=== PATIENT | female | born 1960 | race Caucasian/White ===

== ENCOUNTER 2016-12-09 15:59 | Emergency (ER) | payer MEDICARE ==
[2016-12-09 18:46] LABS: BASOPHILS 0.1 % (0-2); EOSINOPHILS 0.3 % (0-7); HEMATOCRIT 46.9 % (36.0-48.0); HEMOGLOBIN 15.3 g/dL (12-16); IMMATURE GRANULOCYTES 0.3 % (0-5); LYMPHOCYTES 10.1 % (15-50); MCH 31.3 pg (26.0-34.0); MCHC 32.6 g/dL (31.0-37.0); MCV 95.9 fL (80.0-100.0); MEAN PLATELET VOLUME 12.2 fL (7.4-10.4); MONOCYTES 3.1 % (2-11); NEUTROPHILS 86.1 % (40-80); PLATELET COUNT 198 10x3/uL (130-400); RBC 4.89 10x6/uL (4.00-5.40); RDW 13.7 % (11.5-14.5)
[2016-12-09 19:24] LABS: ALBUMIN 3.5 g/dL (3.4-5.0); ALKALINE PHOSPHATASE 88 U/L (46-116); ALT (SGPT) 27 U/L (10-68); BILIRUBIN - TOTAL 0.53 mg/dL (0.2-1.3); CALC OSMOLALITY 288 mosm/kg (275-300); CALCIUM 8.9 mg/dL (8.5-10.1); CARBON DIOXIDE 29.1 mmol/L (21.0-32.0); CHLORIDE - SERUM 109 mmol/L (98-107); CREATININE - SERUM 0.8 mg/dL (0.6-1.3); GLUCOSE 131 mg/dL (74-106); POTASSIUM - SERUM 5.3 mmol/L (3.5-5.1); PROTEIN - SERUM 6.5 g/dL (6.4-8.2); SODIUM 144 mmol/L (136-145); UREA NITROGEN 12 mg/dL (7-18); eGFR NON AFRICAN AMERICAN 78 mL/min (90-120)
[2016-12-09 19:31] LABS: PRO BNP 171 pg/mL (0-125)
[2017-02-11 10:50] VITALS: BMI 32.9
== END 2016-12-09 20:17 | disposition home or self-care (01) ==
LOC: D.ER 15:59
PROVIDERS: Physician Assistant Medical
DX: J44.1 Chronic obstructive pulmonary disease with (acute) exacerbation (principal); F17.200 Nicotine dependence, unspecified, uncomplicated

== ENCOUNTER 2017-02-10 19:21 | Inpatient (IN) | payer MEDICARE ==
[~2017-02-10] VITALS: Ht 157.5 cm; Wt 83.7 kg
--- NOTE | ~2017-02-10 | CN ---
PATIENT NAME:HEATHER WHEELER MEDICAL RECORD: [id number] : 60 LOCATION:D. D.2105 ADMIT DATE: 02/10/17 ACCOUNT: [id number] CONSULTING PHYSICIAN: ATTILA BURROUGHS MD REFERRING PHYSICIAN: PHILLIP CARABALLO MD DATE OF CONSULTATION: 02/11/2017 CONSULT REQUESTING PHYSICIAN: Phillip Caraballo MD REASON FOR CONSULTATION: Acute exacerbation of chronic obstructive pulmonary disease. HISTORY OF PRESENT ILLNESS: Ms. Wheeler is a 56-year-old female who has a history of COPD, current everyday smoker. The patient was sick for the last 4-5 days, she is coughing, she is wheezing, she has shortness of breath, her sinuses are congested. She is also feeling feverish and body aches and pain. REVIEW OF SYSTEMS: Mainly in the history of present illness. PAST MEDICAL HISTORY: 1. COPD. 2. Coronary artery disease. PAST SURGICAL HISTORY: Nonsignificant. ALLERGIES: SHE IS ALLERGIC TO MORPHINE. PRESENT MEDICATIONS: [employer] was reviewed. PERSONAL AND SOCIAL HISTORY: The patient is still a current everyday smoker, almost [id number] pack per day. She is a nondrinker. FAMILY HISTORY: Significant for cardiovascular disease. PHYSICAL EXAMINATION: GENERAL: Now, the patient is lying comfortably in bed. She is not in acute distress. VITAL SIGNS: The blood pressure is 146/90, pulse is 121, respiration is 24, temperature 97.8, SPO2 is 91% on 2 liters nasal cannula. HEENT: Conjunctivae pink, sclerae nonicteric. NECK: Neck is supple, no JVD. CHEST: The chest excursion is minimal on both sides. There is prolonged expiration with wheezing. HEART: Rhythm regular, normal sound, no murmur. ABDOMEN: Abdomen is soft. Bowel sounds present. No hepatosplenomegaly. RECTAL: Deferred. EXTREMITIES: No cyanosis, no clubbing, no pedal edema. SKIN: The skin is warm, normal turgor. CENTRAL NERVOUS SYSTEM: The patient is awake and alert. There are no obvious cranial nerve abnormality. The gait was not tested. CHEST RADIOGRAPH: There is hyperinflation. There are no acute infiltrates. LABORATORY DATA: CBC: The WBC is 9000, hemoglobin 16.2, hematocrit 48, platelet count is 172. Chemistry: Sodium 142, potassium 4.2, BUN is 10, CONSULT REPORT [id number] HEATHER WHEELER creatinine 0.8, glucose 114. IMPRESSION: 1. Acute exacerbation of chronic obstructive pulmonary disease. 2. Acute hypoxic respiratory failure. 3. Tracheobronchitis. 4. Tobacco dependence syndrome. 5. Wheezing. RECOMMENDATIONS: 1. The patient was counseled to quit smoking. 2. Albuterol, ipratropium nebulizer. 3. Brovana, budesonide nebulizer. 4. Adjust the dose of methylprednisolone IV. Continue Levaquin IV. Start her on Mucinex DM 2 tablets b.i.d. Follow up labs and chest radiograph. Dr. Caraballo, thank you for involving me in the care of Ms. Wheeler. TRANSINT:[id number] Voice Confirmation ID: [id number] DOCUMENT ID: [id number] ATTILA BURROUGHS MD at 1406 CC: PHILLIP CARABALLO MD [id number] DICTATION DATE: 02/11/17 1441 FRONT DESK ASSOCIATE: 02/11/17 1511 ADM IN [facility] [address] [place] [address]
[2017-02-10 20:15] LABS: BASOPHILS 0.2 % (0-2); EOSINOPHILS 1.3 % (0-7); HEMOGLOBIN 16.2 g/dL (12-16); IMMATURE GRANULOCYTES 0.3 % (0-5); LYMPHOCYTES 23.7 % (15-50); MCH 31.5 pg (26.0-34.0); MCHC 33.8 g/dL (31.0-37.0); MCV 93.2 fL (80.0-100.0); MEAN PLATELET VOLUME 12.7 fL (7.4-10.4); MONOCYTES 5.2 % (2-11); NEUTROPHILS 69.3 % (40-80); PLATELET COUNT 172 10x3/uL (130-400); RBC 5.15 10x6/uL (4.00-5.40)
[2017-02-10 20:34] LABS: ALBUMIN 3.8 g/dL (3.4-5.0); ALKALINE PHOSPHATASE 111 U/L (46-116); ALT (SGPT) 20 U/L (10-68); BILIRUBIN - TOTAL 0.84 mg/dL (0.2-1.3); CALC OSMOLALITY 282 mosm/kg (275-300); CALCIUM 9.6 mg/dL (8.5-10.1); CARBON DIOXIDE 31.7 mmol/L (21.0-32.0); CHLORIDE - SERUM 104 mmol/L (98-107); CREATININE - SERUM 0.8 mg/dL (0.6-1.3); GLUCOSE 114 mg/dL (74-106); POTASSIUM - SERUM 4.2 mmol/L (3.5-5.1); PROTEIN - SERUM 7.4 g/dL (6.4-8.2); SODIUM 142 mmol/L (136-145); UREA NITROGEN 10 mg/dL (7-18); eGFR NON AFRICAN AMERICAN 78 mL/min (90-120)
[2017-02-10 20:43] LABS: PRO BNP 99 pg/mL (0-125)
[2017-02-10 20:59] LABS: TROPONIN-I < 0.017 ng/mL (0.000-0.060)
[2017-02-10] MEDS ORDERED: PLAVIX75 MG PO (22:35)
[2017-02-10] MEDS ORDERED: ISOSORBIDE MONO30 M1 PO (22:35)
[2017-02-10] MEDS ORDERED: LIPITOR40 MG PO (22:36)
[2017-02-10] MEDS ORDERED: LEXAPRO10 MG PO (22:36)
[2017-02-11] VITALS (8 sets, daily range): BP systolic 126–153; BP diastolic 76–90; Ht 157.5 cm; Wt 83.7 kg
[2017-02-12 01:53] VITALS: BP 147/86
[2017-02-12 05:31] LABS: BASOPHILS 0 % (0-2); EOSINOPHILS 0 % (0-7); HEMATOCRIT 44.5 % (36.0-48.0); HEMOGLOBIN 14.8 g/dL (12-16); IMMATURE GRANULOCYTES 0.2 % (0-5); LYMPHOCYTES 13.9 % (15-50); MCH 31.2 pg (26.0-34.0); MCHC 33.3 g/dL (31.0-37.0); MCV 93.9 fL (80.0-100.0); MEAN PLATELET VOLUME 12.6 fL (7.4-10.4); MONOCYTES 5.6 % (2-11); NEUTROPHILS 80.3 % (40-80); PLATELET COUNT 188 10x3/uL (130-400); RBC 4.74 10x6/uL (4.00-5.40)
[2017-02-12 05:36] VITALS: BP 112/80
[2017-02-12 05:51] LABS: WBC 11.3 10x3/uL (4.8-10.8)
[2017-02-12 06:02] LABS: ALBUMIN 3.3 g/dL (3.4-5.0); ALKALINE PHOSPHATASE 89 U/L (46-116); ALT (SGPT) 18 U/L (10-68); BILIRUBIN - TOTAL 0.61 mg/dL (0.2-1.3); CALC OSMOLALITY 280 mosm/kg (275-300); CALCIUM 9.2 mg/dL (8.5-10.1); CARBON DIOXIDE 29.9 mmol/L (21.0-32.0); CHLORIDE - SERUM 104 mmol/L (98-107); CREATININE - SERUM 0.7 mg/dL (0.6-1.3); GLUCOSE 133 mg/dL (74-106); PROTEIN - SERUM 6.6 g/dL (6.4-8.2); SODIUM 139 mmol/L (136-145); eGFR NON AFRICAN AMERICAN > 90 mL/min (90-120)
[2017-02-12 06:06] LABS: UREA NITROGEN 15 mg/dL (7-18)
[2017-02-12 08:00] VITALS: BP 126/75
[2017-02-12 12:00] VITALS: BP 121/76
[2017-02-12 16:00] VITALS: BP 160/81
[2017-02-13 03:54] VITALS: BP 145/98
[2017-02-13 06:20] LABS: BASOPHILS 0 % (0-2); EOSINOPHILS 0 % (0-7); HEMOGLOBIN 14.8 g/dL (12-16); IMMATURE GRANULOCYTES 0.3 % (0-5); LYMPHOCYTES 8.6 % (15-50); MCH 31.1 pg (26.0-34.0); MCHC 32.9 g/dL (31.0-37.0); MCV 94.5 fL (80.0-100.0); MEAN PLATELET VOLUME 12.8 fL (7.4-10.4); NEUTROPHILS 88.1 % (40-80); PLATELET COUNT 199 10x3/uL (130-400); RBC 4.76 10x6/uL (4.00-5.40); RDW 13.1 % (11.5-14.5); WBC 12.1 10x3/uL (4.8-10.8)
[2017-02-13 06:55] LABS: ALBUMIN 3.3 g/dL (3.4-5.0); ALKALINE PHOSPHATASE 85 U/L (46-116); ALT (SGPT) 20 U/L (10-68); BILIRUBIN - TOTAL 0.41 mg/dL (0.2-1.3); CALC OSMOLALITY 287 mosm/kg (275-300); CALCIUM 9.1 mg/dL (8.5-10.1); CARBON DIOXIDE 29.1 mmol/L (21.0-32.0); CHLORIDE - SERUM 104 mmol/L (98-107); CREATININE - SERUM 0.8 mg/dL (0.6-1.3); POTASSIUM - SERUM 4.3 mmol/L (3.5-5.1); PROTEIN - SERUM 6.7 g/dL (6.4-8.2); SODIUM 140 mmol/L (136-145); UREA NITROGEN 15 mg/dL (7-18); eGFR NON AFRICAN AMERICAN 78 mL/min (90-120)
[2017-02-13 06:57] LABS: GLUCOSE 245 mg/dL (74-106)
[2017-02-13 08:30] VITALS: BP 143/83
[2017-02-13 12:06] VITALS: BP 143/87
[2017-02-13 16:06] VITALS: BP 144/83
[2017-02-13 21:25] VITALS: BP 167/99
[2017-02-14 00:36] VITALS: BP 180/103
[2017-02-14 04:45] VITALS: BP 165/91
[2017-02-14 05:30] LABS: BASOPHILS 0 % (0-2); EOSINOPHILS 0 % (0-7); HEMATOCRIT 44.6 % (36.0-48.0); HEMOGLOBIN 14.7 g/dL (12-16); IMMATURE GRANULOCYTES 0.3 % (0-5); LYMPHOCYTES 9.5 % (15-50); MCH 30.9 pg (26.0-34.0); MCV 93.9 fL (80.0-100.0); MEAN PLATELET VOLUME 12.9 fL (7.4-10.4); MONOCYTES 3.6 % (2-11); NEUTROPHILS 86.6 % (40-80); PLATELET COUNT 195 10x3/uL (130-400); RBC 4.75 10x6/uL (4.00-5.40); WBC 12.9 10x3/uL (4.8-10.8)
[2017-02-14 05:58] LABS: ALBUMIN 3.3 g/dL (3.4-5.0); ANION GAP 11.8 mmol/L (8-16); BILIRUBIN - TOTAL 0.4 mg/dL (0.2-1.3); CARBON DIOXIDE 30.1 mmol/L (21.0-32.0); CREATININE - SERUM 0.9 mg/dL (0.6-1.3); POTASSIUM - SERUM 3.9 mmol/L (3.5-5.1); PROTEIN - SERUM 6.6 g/dL (6.4-8.2)
[2017-02-14 08:05] VITALS: BP 180/110
[2017-02-14 12:10] VITALS: BP 130/83
[2017-02-14 15:01] VITALS: BP 138/84
[2017-02-14 21:11] VITALS: BP 149/87
[2017-02-15 01:27] VITALS: BP 148/81
[2017-02-15 05:08] VITALS: BP 137/74
[2017-02-15 06:49] LABS: BASOPHILS 0 % (0-2); EOSINOPHILS 0 % (0-7); HEMOGLOBIN 14.9 g/dL (12-16); IMMATURE GRANULOCYTES 0.4 % (0-5); LYMPHOCYTES 11.4 % (15-50); MCHC 33.1 g/dL (31.0-37.0); MCV 93.8 fL (80.0-100.0); MEAN PLATELET VOLUME 12.7 fL (7.4-10.4); MONOCYTES 5.2 % (2-11); PLATELET COUNT 187 10x3/uL (130-400); WBC 10.1 10x3/uL (4.8-10.8)
[2017-02-15 07:25] LABS: ALBUMIN 3.4 g/dL (3.4-5.0); ANION GAP 13.1 mmol/L (8-16); BILIRUBIN - TOTAL 0.42 mg/dL (0.2-1.3); CALCIUM 9.1 mg/dL (8.5-10.1); CARBON DIOXIDE 30.5 mmol/L (21.0-32.0); CREATININE - SERUM 1.1 mg/dL (0.6-1.3); POTASSIUM - SERUM 3.6 mmol/L (3.5-5.1); PROTEIN - SERUM 6.4 g/dL (6.4-8.2)
[2017-02-15 07:54] VITALS: BP 151/95
[2017-02-15 12:33] VITALS: BP 119/86
[2017-02-15 16:10] VITALS: BP 151/69
[2017-02-15 20:58] VITALS: BP 140/78
[2017-02-16 05:19] VITALS: BP 137/75
[2017-02-16 07:28] LABS: BASOPHILS 0 % (0-2); EOSINOPHILS 0 % (0-7); HEMATOCRIT 45.1 % (36.0-48.0); HEMOGLOBIN 15.2 g/dL (12-16); IMMATURE GRANULOCYTES 0.3 % (0-5); LYMPHOCYTES 18.3 % (15-50); MCHC 33.7 g/dL (31.0-37.0); MEAN PLATELET VOLUME 11.9 fL (7.4-10.4); MONOCYTES 8.4 % (2-11); PLATELET COUNT 193 10x3/uL (130-400); RDW 12.8 % (11.5-14.5); WBC 12.3 10x3/uL (4.8-10.8)
[2017-02-16 07:53] LABS: ALBUMIN 3.3 g/dL (3.4-5.0); ANION GAP 11.3 mmol/L (8-16); BILIRUBIN - TOTAL 0.52 mg/dL (0.2-1.3); CALCIUM 8.3 mg/dL (8.5-10.1); CARBON DIOXIDE 31.8 mmol/L (21.0-32.0); CREATININE - SERUM 0.9 mg/dL (0.6-1.3); POTASSIUM - SERUM 3.1 mmol/L (3.5-5.1); PROTEIN - SERUM 6.2 g/dL (6.4-8.2)
[2017-02-16 12:25] VITALS: BP 111/68
[2017-02-16] MEDS ORDERED: Levaquin PO (13:49)
[2017-02-16] MEDS ORDERED: BROVANA15 MCG/2 M INH (13:50)
[2017-02-16] MEDS ORDERED: MUCINEX DM ER1 EAC1 PO (13:50)
[2017-02-16] MEDS ORDERED: IPRAT-ALBUT 0.5-3 ML INH (13:50)
[2017-02-16] MEDS ORDERED: SINGULAIR10 MG PO (13:50)
[2017-02-16] MEDS ORDERED: STERAPRED 5MG 125 MG PO (13:52)
[2017-02-16 20:50] VITALS: BP 157/96
[2017-02-17 01:45] VITALS: BP 128/83
[2017-02-17 09:25] VITALS: BP 101/55
== END 2017-02-17 16:05 | disposition home or self-care (01) | DRG 190 ==
LOC: D.ER 19:21 → D.M2 21:05
PROVIDERS: Family Medicine
DX: J44.1 Chronic obstructive pulmonary disease with (acute) exacerbation (principal); J96.01 Acute respiratory failure with hypoxia; F17.203 Nicotine dependence unspecified, with withdrawal; I25.10 Atherosclerotic heart disease of native coronary artery without angina pectoris

== ENCOUNTER → 2017-05-26 20:17 | Emergency (ER) | payer MEDICARE ==
[2017-02-11 10:50] VITALS: BMI 32.9
[~2017-05-26 20:17] MED LIST: BROVANA15 MCG/2 M INH; IPRAT-ALBUT 0.5-3 ML INH; ISOSORBIDE MONO30 M1 PO; LEXAPRO10 MG PO; LIPITOR40 MG PO; Levaquin PO; MUCINEX DM ER1 EAC1 PO; PLAVIX75 MG PO; SINGULAIR10 MG PO; STERAPRED 5MG 125 MG PO
== END | disposition home or self-care (01) ==
LOC: D.ER 20:17
DX: Z02.9 Encounter for administrative examinations, unspecified (principal)

== ENCOUNTER → 2017-08-26 13:03 | Outpatient (CLI) | payer MEDICARE ==
[2017-02-11 10:50] VITALS: BMI 32.9
[~2017-08-26 13:03] MED LIST changes: +LEVAQUIN750 MG PO; +PREDNISONE20 MG PO
== END | disposition home or self-care (01) ==
LOC: D.RT 07-01 13:00
DX: J44.9 Chronic obstructive pulmonary disease, unspecified (principal)

== ENCOUNTER 2017-10-18 15:31 | Emergency (ER) | payer MEDICARE ==
[~2017-10-18] VITALS: Ht 157.5 cm; Wt 84.5 kg
[~2017-10-18 15:31] MED LIST changes: -LEVAQUIN750 MG PO; -PREDNISONE20 MG PO
[2017-10-18 15:50] VITALS: Ht 157.5 cm; Wt 84.5 kg
[2017-10-18 16:22] LABS: BASOPHILS 0.2 % (0-2); EOSINOPHILS 1.6 % (0-7); HEMATOCRIT 39.7 % (36.0-48.0); HEMOGLOBIN 13.4 g/dL (12-16); IMMATURE GRANULOCYTES 0.2 % (0-5); LYMPHOCYTES 18.5 % (15-50); MCH 30.9 pg (26.0-34.0); MCHC 33.8 g/dL (31.0-37.0); MCV 91.7 fL (80.0-100.0); MONOCYTES 5.6 % (2-11); NEUTROPHILS 73.9 % (40-80); RBC 4.33 10x6/uL (4.00-5.40); RDW 12.5 % (11.5-14.5); WBC 9.6 10x3/uL (4.8-10.8)
[2017-10-18 16:23] LABS: PLATELET COUNT 237 10x3/uL (130-400)
[2017-10-18 16:27] LABS: APTT 30.6 SECONDS (22.8-39.4); PROTIME 12.8 SECONDS (11.6-15.0)
[2017-10-18 16:32] LABS: ALBUMIN 3.1 g/dL (3.4-5.0); ALKALINE PHOSPHATASE 102 U/L (46-116); ALT (SGPT) 33 U/L (10-68); BILIRUBIN - TOTAL 0.41 mg/dL (0.2-1.3); CALC OSMOLALITY 276 mosm/kg (275-300); CALCIUM 8.9 mg/dL (8.5-10.1); CARBON DIOXIDE 30.1 mmol/L (21.0-32.0); CHLORIDE - SERUM 103 mmol/L (98-107); CREATININE - SERUM 0.8 mg/dL (0.6-1.3); PROTEIN - SERUM 7.4 g/dL (6.4-8.2); SODIUM 139 mmol/L (136-145); UREA NITROGEN 7 mg/dL (7-18); eGFR NON AFRICAN AMERICAN 78 mL/min (90-120)
[2017-10-18 16:35] LABS: GLUCOSE 115 mg/dL (74-106)
[2017-10-18 16:45] LABS: CKMB 3.2 U/L (0.0-3.6); CREATINE KINASE 226 UL (21-215); PRO BNP 125 pg/mL (0-125); TROPONIN-I < 0.017 ng/mL (0.000-0.060)
[2017-10-18] MEDS ORDERED: PREDNISONE20 MG PO (16:50)
[2017-10-18] MEDS ORDERED: LEVAQUIN750 MG PO (16:50)
[2017-10-18 19:00] VITALS: BP 102/51
== END 2017-10-18 19:00 | disposition home or self-care (01) ==
LOC: D.ER 15:31
PROVIDERS: Family Medicine
DX: J44.1 Chronic obstructive pulmonary disease with (acute) exacerbation (principal); R00.0 Tachycardia, unspecified; R05 Cough; I50.9 Heart failure, unspecified; K21.9 Gastro-esophageal reflux disease without esophagitis; F17.200 Nicotine dependence, unspecified, uncomplicated

== ENCOUNTER → 2017-12-01 11:22 | Outpatient (CLI) | payer MEDICARE ==
[2017-10-18 15:50] VITALS: BMI 34.1
[~2017-12-01 11:22] MED LIST changes: +LEVAQUIN750 MG PO; +PREDNISONE20 MG PO
== END | disposition home or self-care (01) ==
LOC: D.CT 11:22
DX: R94.2 Abnormal results of pulmonary function studies (principal); Z12.31 Encounter for screening mammogram for malignant neoplasm of breast

== ENCOUNTER → 2018-02-26 12:13 | Outpatient (CLI) | payer MEDICARE ==
[2017-10-18 15:50] VITALS: BMI 34.1
== END | disposition home or self-care (01) ==
LOC: D.LABREF 12:13
DX: R25.2 Cramp and spasm (principal)

== ENCOUNTER → 2019-12-02 12:36 | Outpatient (CLI) | payer MEDICARE ==
[2017-10-18 15:50] VITALS: BMI 34.1
--- NOTE | ~2019-12-02 | EC ---
PATIENT:HEATHER YODER DATE OF SERVICE: 12/02/19 SEX: F MEDICAL RECORD: [id number] DATE OF : 60 LOCATION:[facility] AGE OF PATIENT: 59 ADMISSION DATE: 12/02/19 REFERRING PHYSICIAN: INTERPRETING PHYSICIAN: LORRAINE ALVARES MD ECHOCARDIOGRAM REPORT ECHO CHARGES 5 ECHO LIMITED Date: 12/02/19 CLINICAL DIAGNOSIS: CAD/HEART MURMUR HX COPD ECHOCARDIOGRAPHIC MEASUREMENTS (adult normal given) AC root (d.<3.7cm) 3.3 cm LV Septum d (<1.2 cm> 1.5 cm Valve Excursion 1.2 cm LV Septum (systole) 1.6 cm Left Atria (s.<4.0cm> 3.8 cm LVPW d(<1.2cm) 1.3 cm RV (d.<2.3cm) 3.1 cm LVPW (sytole) 1.7 cm LV diastole(<5.6CM) 5.0 cm MV E-F(>70mm/sec) cm LV systole 3.6 cm LVOT Diameter cm MV exc.(>10mm) cm Est.ejection fraction (50-75%) % DOPPLER: LVIT cm/sec A cm/sec E cm/sec LA cm/sec RVSP 45 mmHg LVOT cm/sec AOP1/2T m/s Asc. Ao cm/sec RVOT cm/sec RA cm/sec PA cm/sec AV Gradient Peak mmHg AV Mean mmHg AV Area cm MV Gradient Peak mmHg MV Mean mmHg MV Area cm COMMENTS: Water/Wastewater Project Engineer: 2 PRESTON DWYER Electrical Maintenance Engineer: 3 Dr. Ellsworth TAPE# PACS Pericardial Effusion N DATE OF SERVICE: Adequate 2D, color flow imaging, spectral Doppler, and M-Mode. LVH is present. LV internal dimensions are normal. Wall motion is normal. EF is greater than or equal to 55%. Aortic valve is tricuspid. No evidence of stenosis by Doppler interrogation. Left atrium is normal. Mitral valve shows no prolapse. Trace MR. Right-sided chambers grossly appear normal. Mild TR. TRANSINT:[id number] Voice Confirmation ID: [id number] DOCUMENT ID: [id number] ECHOCARDIOGRAM REPORT [id number] HEATHER YODER LORRAINE ALVARES MD CC: [id number] DICTATION DATE: 12/06/19 08 TILE GRADER: 12/06/19 1118 DEP CLI 12/02/19 [facility] [address] [place] [address]
== END | disposition home or self-care (01) ==
LOC: D.HCCECHO 12:36
PROVIDERS: ATTEND Internal Medicine Interventional Cardiology
DX: I25.10 Atherosclerotic heart disease of native coronary artery without angina pectoris (principal)